=== PATIENT | female | born 1960 | race Hispanic/Latino ===

== ENCOUNTER 2025-04-27 09:22 | Emergency (ER) | payer MEDICARE ==
[~2025-04-27] VITALS: Ht 167.6 cm; Wt 56.2 kg
[2025-04-27 09:42] VITALS: TEMP 96.9
[2025-04-27] MEDS: SODIUM CHLORIDE 0.9% 1000ML 1,000 ML IV STA ×2 (10:53→12:21)
[2025-04-27 11:22] LABS: BASOPHILS % 0.2 % (0.0-1.0); EOSINOPHILS % 0.1 % (0.0-6.0); LYMPHOCYTES % 6.8 % (18.0-39.1); MONOCYTES % 8.7 % (4.4-11.3); NEUTROPHILS % 83.6 % (38.7-80.0); RED CELL DISTRIBUTION WIDTH 14.5 % (11.7-14.4)
[2025-04-27 11:34] LABS: LEUKOCYTE ESTERASE ,URINE SMALL (NEGATIVE); PROTEIN,URINE DIPSTICK >=300 (NEGATIVE); URINE UROBILINOGEN 4.0 mg/dL (0.2 - 1)
[2025-04-27 11:35] LABS: EPITHELIAL CELLS,URINE RARE /LPF; WBC,URINE (MAN) >50 /HPF (0-5)
[2025-04-27 11:40] LABS: EST GLOMERULAR FILTRATION RATE 65.0 ML/MIN (>=60)
[2025-04-27] MEDS: CEFTRIAXONE 2 GM in SODIUM CHLORIDE 0.9% 100 ML IV ONE (12:21)
[2025-04-27] MEDS: INSULIN REGULAR, HUMAN 100 UNIT/1 ML IV ONE (12:22)
[2025-04-27] MEDS ORDERED: CEFDINIR300 MG PO (12:38)
[2025-04-27 13:15] VITALS: PULSE 88; RESP 18; O2SAT 100
== END 2025-04-27 13:23 | disposition home or self-care (01) ==
LOC: ER 10:02
DX: E11.65 Type 2 diabetes mellitus with hyperglycemia (principal); N39.0 Urinary tract infection, site not specified; I10 Essential (primary) hypertension; E03.9 Hypothyroidism, unspecified; M06.9 Rheumatoid arthritis, unspecified
CPT/HCPCS: 36415; 80053; 81001; 82948; 83735; 84484; 85025; 99284; J0696; J7030; J7050